=== PATIENT | male | born 1990 | race African-American/Black ===

== ENCOUNTER 2017-05-15 19:04 | Emergency (ER) | payer MEDICAID ==
[~2017-05-15] VITALS: Ht 177.8 cm; Wt 104.0 kg
[2017-05-16] MEDS ORDERED: ONDANSETRON HCL 4MG/2ML VIAL IV STA ×2 (02:56→04:03)
[2017-05-16] MEDS ORDERED: KETOROLAC 30MG/ML VIAL IV STA (02:56)
[2017-05-16] MEDS ORDERED: SODIUM CHLORIDE 0.9% 1,000 ML IV ONE (02:56)
[2017-05-16 03:22] LABS: BASOPHILS % 0.4 % (0.0-2.0); EOSINOPHILS % 0.5 % (0.0-5.0); HEMATOCRIT. 44.1 % (42.0-52.0); HEMOGLOBIN. 15.1 g/dL (14.0-18.0); LYMPHOCYTES % 15.2 % (20.0-50.0); MEAN CORPUSCULAR VOLUME 93.2 fL (80.0-94.0); MEAN PLATELET VOLUME 7.5 fl (7.4-10.4); NEUTROPHILS % 78.9 % (40.0-76.0); PLATELET 240 x1000/uL (130-400); RED BLOOD CELL COUNT 4.73 mill/uL (4.7-6.1); RED CELL DISTRIBUTION WIDTH 13.4 % (11.6-14.6)
[2017-05-16 03:27] LABS: CLARITY URINE CLEAR (CLEAR); COLOR URINE YELLOW (YELLOW); KETONES URINE TRACE (NEGATIVE); LEUKOCYTE ESTERASE URINE TRACE (NEGATIVE); NITRITE URINE NEGATIVE (NEGATIVE); OCCULT BLOOD URINE NEGATIVE (NEGATIVE); PROTEIN URINE TRACE (NEGATIVE); SPECIFIC GRAVITY URINE 1.033 (1.005-1.030)
[2017-05-16 03:29] LABS: INR 1.2
[2017-05-16 03:34] LABS: CARBON DIOXIDE 28 mEq/L (21-32); CHLORIDE 103 mEq/L (98-107); ETHANOL BLOOD < 10 mg/dL
[2017-05-16] MEDS ORDERED: HYDROCODONE/APAP 7.5/325MG 1 TAB TABLET PO ONE (04:15)
[2017-05-16 04:20] VITALS: BP 156/83
== END 2017-05-16 05:02 | disposition home or self-care (01) ==
LOC: ER 19:40
DX: K52.9 Noninfective gastroenteritis and colitis, unspecified (principal); M54.5 Low back pain; J45.909 Unspecified asthma, uncomplicated; I10 Essential (primary) hypertension; R79.1 Abnormal coagulation profile
CPT/HCPCS: 36415; 80053; 81001; 83690; 85025; 85610; 96374; 96375; 96376; 99284; G0482; J1885; J2405; J7030; Z7610

== ENCOUNTER 2021-01-12 09:23 | Emergency (ER) | payer MEDICAID ==
[~2021-01-12] VITALS: Ht 177.8 cm; Wt 98.0 kg
[~2021-01-12 09:23] MED LIST: GABA-290 PO; HYDR-4001 MT; LIP40 PO; LISI-186 PO; LISI20TA31 PO; METO25TA6 PO
[2021-01-12] MEDS ORDERED: DIAZEPAM 5 MG TABLET PO ONE (10:00)
[2021-01-12] MEDS ORDERED: HYDROCODONE/ACETAMINOPHEN 5/325MG TABLET PO ONE (10:00)
[2021-01-12] MEDS ORDERED: IBUP-2029 MT (10:46)
[2021-01-12] MEDS ORDERED: HYDR-4001 MT (10:46)
[2021-01-12] MEDS ORDERED: METH-773 MT (10:46)
[2021-01-12 11:09] VITALS: BP 145/83
== END 2021-01-12 11:11 | disposition home or self-care (01) ==
LOC: ER 09:23
DX: M54.9 Dorsalgia, unspecified (principal); M54.30 Sciatica, unspecified side; Z86.73 Personal history of transient ischemic attack (TIA), and cerebral infarction without residual deficits
CPT/HCPCS: 99283

== ENCOUNTER 2021-02-04 18:37 | Emergency (ER) | payer MEDICAID ==
[~2021-02-04] VITALS: Ht 177.8 cm; Wt 99.6 kg
[~2021-02-04 18:37] MED LIST changes: +IBUP-2029 MT; +METH-773 MT
[2021-02-04] MEDS ORDERED: KETOROLAC 60MG/2ML VIAL IM ONE (21:15)
[2021-02-04] MEDS ORDERED: IBUP-2028 MT (22:22)
[2021-02-04 22:48] VITALS: BP 138/76
== END 2021-02-04 22:51 | disposition home or self-care (01) ==
LOC: ER 18:37
DX: M54.9 Dorsalgia, unspecified (principal); M25.551 Pain in right hip; G89.29 Other chronic pain; J45.909 Unspecified asthma, uncomplicated; I10 Essential (primary) hypertension; Z86.73 Personal history of transient ischemic attack (TIA), and cerebral infarction without residual deficits; Z98.890 Other specified postprocedural states
CPT/HCPCS: 72100; 73502; 73552; 96372; 99284; J1885

== ENCOUNTER 2021-05-26 03:46 | Emergency (ER) | payer OTHER ==
[~2021-05-26] VITALS: Ht 177.8 cm; Wt 96.0 kg
[~2021-05-26 03:46] MED LIST changes: +ASPI-1406 MT; +HYDR100T26 PO; +IBUP-2028 MT; -LISI-186 PO; +LISI20TA31 MT
[2021-05-26 04:03] VITALS: BP 155/81
[2021-05-26] MEDS ORDERED: ACETAMINOPHEN 325MG TABLET PO STA (04:11)
== END 2021-05-26 05:37 | disposition home or self-care (01) ==
LOC: ER 03:46
DX: R00.2 Palpitations (principal); F12.10 Cannabis abuse, uncomplicated; J45.909 Unspecified asthma, uncomplicated; Z79.899 Other long term (current) drug therapy; Z86.73 Personal history of transient ischemic attack (TIA), and cerebral infarction without residual deficits
CPT/HCPCS: 71045; 93005; 99283

== ENCOUNTER 2021-08-04 00:12 | Emergency (ER) | payer MEDICAID, OTHER ==
[~2021-08-04] VITALS: Ht 177.8 cm; Wt 95.1 kg
[2021-08-04] MEDS ORDERED: ASPIRIN 81MG TABLET PO ONE (01:15)
[2021-08-04 01:24] LABS: BASOPHILS % 0.9 % (0.0-2.0); EOSINOPHILS % 6.5 % (0.0-5.0); HEMATOCRIT. 36.5 % (42.0-52.0); HEMOGLOBIN. 12.7 g/dL (14.0-18.0); LYMPHOCYTES % 46.9 % (20.0-50.0); MEAN CORPUSCULAR HEMOGLOBIN 32.4 pg (28.0-32.0); MEAN CORPUSCULAR VOLUME 93.4 fL (80.0-94.0); MEAN PLATELET VOLUME 7.1 fl (7.4-10.4); MONOCYTES % 4.7 % (2.0-8.0); PLATELET 264 x1000/uL (130-400); RED BLOOD CELL COUNT 3.91 mill/uL (4.7-6.1); RED CELL DISTRIBUTION WIDTH 13.3 % (11.6-14.6)
[2021-08-04 01:36] LABS: CHLORIDE 107 mEq/L (98-107)
[2021-08-04 05:56] VITALS: BP 139/80
== END 2021-08-04 05:59 | disposition left against medical advice (07) ==
LOC: ER 00:12
DX: R42 Dizziness and giddiness (principal); F12.10 Cannabis abuse, uncomplicated; Z20.822 Contact with and (suspected) exposure to COVID-19; Z86.73 Personal history of transient ischemic attack (TIA), and cerebral infarction without residual deficits
CPT/HCPCS: 36415; 71045; 80053; 83880; 84484; 85025; 87426; 93005; 99285

== ENCOUNTER 2021-08-31 14:38 | Emergency (ER) | payer OTHER ==
[~2021-08-31] VITALS: Ht 177.8 cm; Wt 90.0 kg
[2021-08-31 14:41] VITALS: BP 166/96
[2021-08-31] MEDS ORDERED: KETOROLAC 30MG/ML VIAL IM ONE (15:00)
[2021-08-31] MEDS ORDERED: DOXY100T2 MT (16:10)
[2021-08-31] MEDS ORDERED: DOXYCYCLINE HYCLATE 100MG CAPSULE PO ONE (16:15)
[2021-08-31] MEDS ORDERED: CEFTRIAXONE SODIUM 500 MG/VIAL IM ONE (16:15)
[2021-08-31] MEDS ORDERED: LIDOCAINE HCL 1% 20ML VIAL (Pyxis) INJ INFIL ONE (16:15)
[2021-08-31 17:00] LABS: CLARITY URINE CLEAR (CLEAR); COLOR URINE YELLOW (YELLOW); KETONES URINE 1+ (NEGATIVE); LEUKOCYTE ESTERASE URINE 1+ (NEGATIVE); NITRITE URINE NEGATIVE (NEGATIVE); OCCULT BLOOD URINE NEGATIVE (NEGATIVE); PH URINE 7.5 (4.5-8.0); PROTEIN URINE NEGATIVE (NEGATIVE); SPECIFIC GRAVITY URINE 1.024 (1.005-1.030)
[2021-08-31] MEDS ORDERED: TOPUD MT (17:27)
[2021-08-31] MEDS ORDERED: IBUP-2028 MT (17:27)
[2021-09-03 04:10] LABS: NEISSERIA GONORRHOEAE NAA Negative (Negative)
== END 2021-08-31 17:49 | disposition home or self-care (01) ==
LOC: ER 14:45
DX: N45.3 Epididymo-orchitis (principal); I10 Essential (primary) hypertension; Z79.82 Long term (current) use of aspirin; Z86.73 Personal history of transient ischemic attack (TIA), and cerebral infarction without residual deficits
CPT/HCPCS: 76870; 81003; 87086; 87491; 87591; 93976; 96372; 99284; J0696; J1885; J3490

== ENCOUNTER 2021-09-08 12:45 | Emergency (ER) | payer OTHER ==
[~2021-09-08] VITALS: Ht 182.9 cm; Wt 87.0 kg
[~2021-09-08 12:45] MED LIST changes: +DOXY100T2 MT; +TOPUD MT
[2021-09-08] MEDS ORDERED: ACETAMINOPHEN 325MG TABLET PO NR (13:36)
[2021-09-08] MEDS ORDERED: CEFTRIAXONE 1 G PREMIX 50 ML IV NR (13:45)
[2021-09-08] MEDS ORDERED: IBUPROFEN 400MG TABLET PO ONE (14:45)
[2021-09-08] MEDS ORDERED: SODIUM CHLORIDE 0.9% 1,000 ML IV ONE (15:00)
[2021-09-08] MEDS ORDERED: IBUPROFEN 400MG TABLET PO NR (15:15)
[2021-09-08 16:35] VITALS: BP 147/70
[2021-09-08] MEDS ORDERED: LORAZEPAM 2MG/ML CPJ IM PRN (17:00)
[2021-09-08] MEDS ORDERED: HALOPERIDOL LACTATE 5MG/ML VIAL IM NR (17:00)
[2021-09-08] MEDS ORDERED: HALOPERIDOL LACTATE 5MG/ML VIAL IM ONE (17:00)
[2021-09-08] MEDS ORDERED: LORAZEPAM 2MG/ML CPJ IV NR (17:00)
[2021-09-08 17:31] LABS: HEMATOCRIT. 47.4 % (42.0-52.0); HEMOGLOBIN. 15.1 g/dL (14.0-18.0); MEAN CORPUSCULAR HEMOGLOBIN 30.7 pg (28.0-32.0); MEAN PLATELET VOLUME 7.3 fl (7.4-10.4); PLATELET 459 x1000/uL (130-400); RED BLOOD CELL COUNT 4.94 mill/uL (4.7-6.1)
[2021-09-08 17:36] LABS: CHLORIDE 108 mEq/L (98-107)
[2021-09-08 18:29] LABS: PLATELET ESTIMATE INCREASED
== END 2021-09-08 18:35 | disposition short-term general hospital (02) ==
LOC: ER 12:45
DX: F41.9 Anxiety disorder, unspecified (principal); D72.829 Elevated white blood cell count, unspecified; I10 Essential (primary) hypertension; F12.10 Cannabis abuse, uncomplicated; Z20.822 Contact with and (suspected) exposure to COVID-19; Z79.899 Other long term (current) drug therapy; Z98.890 Other specified postprocedural states
CPT/HCPCS: 36415; 71045; 80048; 80076; 84145; 85025; 87426; 96372; 96374; 96375; 99285; C9803; J0696; J1630; J2060

== ENCOUNTER 2021-09-16 23:43 | Emergency (ER) | payer OTHER ==
[~2021-09-16] VITALS: Ht 177.8 cm; Wt 93.8 kg
[2021-09-17] MEDS ORDERED: ASPIRIN 81MG TABLET PO ONE (00:15)
[2021-09-17 00:41] LABS: CHLORIDE 107 mEq/L (98-107)
[2021-09-17 01:30] LABS: EOSINOPHILS % 5.2 % (0.0-5.0); HEMATOCRIT. 36.2 % (42.0-52.0); HEMOGLOBIN. 12.4 g/dL (14.0-18.0); LYMPHOCYTES % 49.8 % (20.0-50.0); MEAN CORPUSCULAR HEMOGLOBIN 31.6 pg (28.0-32.0); MEAN CORPUSCULAR VOLUME 92.1 fL (80.0-94.0); MEAN PLATELET VOLUME 7.2 fl (7.4-10.4); MONOCYTES % 4.2 % (2.0-8.0); NEUTROPHILS % 39.8 % (40.0-76.0); PLATELET 422 x1000/uL (130-400); RED BLOOD CELL COUNT 3.93 mill/uL (4.7-6.1); RED CELL DISTRIBUTION WIDTH 14.2 % (11.6-14.6)
[2021-09-17 02:52] VITALS: BP 140/87
== END 2021-09-17 03:03 | disposition home or self-care (01) ==
LOC: ER 23:43
DX: R07.89 Other chest pain (principal); J45.909 Unspecified asthma, uncomplicated; I10 Essential (primary) hypertension; F12.10 Cannabis abuse, uncomplicated; Z79.899 Other long term (current) drug therapy
CPT/HCPCS: 36415; 80053; 83880; 84484; 85025; 93005; 99283

== ENCOUNTER 2021-11-27 00:02 | Emergency (ER) | payer OTHER ==
[~2021-11-27] VITALS: Ht 180.3 cm; Wt 92.1 kg
[2021-11-27] MEDS ORDERED: DIPHENHYDRAMINE 50MG/ML VIAL IV ONE (00:45)
[2021-11-27] MEDS ORDERED: DEXAMETHASONE 10 MG/ML VIAL IV ONE (00:45)
[2021-11-27] MEDS ORDERED: FAMOTIDINE 20MG/2ML VIAL IV ONE (00:45)
[2021-11-27] MEDS ORDERED: P20 MT (03:47)
[2021-11-27] MEDS ORDERED: FAMO-135 MT (03:47)
[2021-11-27 04:16] VITALS: BP 146/83
== END 2021-11-27 04:18 | disposition home or self-care (01) ==
LOC: ER 00:02
DX: T78.1XXA Other adverse food reactions, not elsewhere classified, initial encounter (principal); F12.10 Cannabis abuse, uncomplicated; J45.909 Unspecified asthma, uncomplicated; E11.9 Type 2 diabetes mellitus without complications; I10 Essential (primary) hypertension; Z79.899 Other long term (current) drug therapy; X58.XXXA Exposure to other specified factors, initial encounter
CPT/HCPCS: 96374; 96375; 99284; J1100; J1200; J3490

== ENCOUNTER 2022-03-24 05:13 | Emergency (ER) | payer MEDICAID, OTHER ==
[~2022-03-24] VITALS: Ht 177.8 cm; Wt 91.0 kg
[~2022-03-24 05:13] MED LIST changes: +FAMO-135 MT; +P20 MT
[2022-03-24 05:29] VITALS: BP 164/96
[2022-03-24] MEDS ORDERED: ACETAMINOPHEN 325MG TABLET PO STA (05:45)
[2022-03-24 06:20] LABS: HEMATOCRIT. 42.1 % (42.0-52.0); HEMOGLOBIN. 14.3 g/dL (14.0-18.0); MEAN CORPUSCULAR HEMOGLOBIN 32.7 pg (28.0-32.0); MEAN PLATELET VOLUME 7.8 fl (7.4-10.4); PLATELET 275 x1000/uL (130-400); RED BLOOD CELL COUNT 4.39 mill/uL (4.7-6.1); RED CELL DISTRIBUTION WIDTH 14.1 % (11.6-14.6)
[2022-03-24 06:25] LABS: CHLORIDE 103 mEq/L (98-107)
[2022-03-24 06:30] LABS: INR 1.1; PROTHROMBIN TIME 11.4 sec (9.6-11.0)
[2022-03-24 09:19] LABS: PLATELET ESTIMATE NORMAL
== END 2022-03-24 09:19 | disposition left against medical advice (07) ==
LOC: ER 05:13
DX: R53.1 Weakness (principal); I10 Essential (primary) hypertension; J45.909 Unspecified asthma, uncomplicated; Z91.010 Allergy to peanuts; Z79.899 Other long term (current) drug therapy
CPT/HCPCS: 36415; 71045; 80053; 83605; 84145; 85025; 93005; 99285

== ENCOUNTER 2023-04-06 11:46 | Emergency (ER) | payer MEDICAID ==
[~2023-04-06] VITALS: Ht 177.8 cm; Wt 82.0 kg
[2023-04-06 11:49] VITALS: BP 146/94; PULSE 100; RESP 15; TEMP 98.7; O2SAT 99
[2023-04-06 13:10] LABS: BASOPHILS % 1.5 % (0.0-2.0); EOSINOPHILS % 2.8 % (0.0-5.0); HEMATOCRIT. 52.8 % (42.0-52.0); HEMOGLOBIN. 17.9 g/dL (14.0-18.0); LYMPHOCYTES % 31.1 % (20.0-50.0); MEAN CORPUSCULAR HEMOGLOBIN 32.7 pg (28.0-32.0); MEAN CORPUSCULAR VOLUME 96.2 fL (80.0-94.0); MEAN PLATELET VOLUME 7.8 fl (7.4-10.4); MONOCYTES % 6.9 % (2.0-8.0); NEUTROPHILS % 57.7 % (40.0-76.0); PLATELET 339 x1000/uL (130-400); RED BLOOD CELL COUNT 5.48 mill/uL (4.7-6.1); WHITE BLOOD COUNT 4.7 x1000/uL (4.5-11.0)
[2023-04-06 13:39] LABS: ALANINE AMINOTRANSFERASE 24 IU/L (10-49); ALBUMIN 5.6 g/dL (3.2-4.8); ASPARTATE AMINOTRANSFERASE 30 IU/L (<34); BILIRUBIN TOTAL 1.2 mg/dL (0.1-1.0); CALCIUM 11.3 mg/dL (8.7-10.4); CARBON DIOXIDE 28 mEq/L (21-32); CHLORIDE 97 mEq/L (98-107); CREATININE 1.1 mg/dL (0.6-1.3); GLUCOSE 82 mg/dL (70-105); POTASSIUM 5.3 mEq/L (3.5-5.1); PROTEIN TOTAL 9.4 g/dL (6.0-8.3); SODIUM 133 mEq/L (136-145); UREA NITROGEN BLOOD 15 mg/dL (9-23)
[2023-04-06 13:52] LABS: ETHANOL BLOOD < 10 mg/dL (<10)
[2023-04-06] MEDS ORDERED: SODIUM POLYSTYRENE SULFONATE 15 G/60 ML BOT PO ONE (16:00)
== END 2023-04-06 18:55 | disposition left against medical advice (07) ==
LOC: ER 11:46
DX: E87.5 Hyperkalemia (principal); R10.9 Unspecified abdominal pain; F12.90 Cannabis use, unspecified, uncomplicated; J45.909 Unspecified asthma, uncomplicated; I10 Essential (primary) hypertension; K75.9 Inflammatory liver disease, unspecified; Z91.018 Allergy to other foods
CPT/HCPCS: 36415; 80053; 80320; 85025; 99283; G0480